=== PATIENT | female | born 1955 | race Caucasian/White ===

== ENCOUNTER 2023-01-14 14:46 | Observation (INO) | payer MEDICARE, OTHER, SELFPAY ==
--- NOTE | ~2023-01-14 | XR_ITS ---
EXAMINATION: XR CHEST CLINICAL INFORMATION: Chest pain COMPARISON: Chest 06/03/2018 TECHNIQUE: Frontal view of the chest was obtained. FINDINGS: No significant abnormality is noted involving the heart, lungs, mediastinum, bony thorax or soft tissues. XR/XR chest 1V IMPRESSION: Unremarkable chest examination.
--- NOTE | ~2023-01-14 | CT_ITS ---
EXAMINATION: CT angio head neck stroke, CT head for stroke CLINICAL INFORMATION: Slurred speech. COMPARISON: No relevant prior imaging. TECHNIQUE: Academic Support Director images were obtained. A CT angiogram of the head and neck was performed in the arterial phase after the intravenous administration of 70 mL Omnipaque 350. Pre and delayed postcontrast images of the head were also obtained. 3D images were processed on an independent workstation under concurrent supervision. Arterial stenoses are measured in accordance with NASCET criteria or similar method if applicable. This CT examination was performed using dose optimization techniques as appropriate, including one or more of the following: Automated exposure control, iterative reconstruction, and adjustment of technique factors (mA and/or kVp) according to patient size (this includes techniques or standardized protocols for targeted exams where dose is matched to indication/reason for exam). Fleischner Society criteria for the followup of incidental pulmonary nodules was implemented if appropriate. Total exam dose-length product 1469 mGy-cm FINDINGS: Head: There is no acute intracranial hemorrhage or abnormal extra-axial collection. Postcontrast images reveal no abnormal intracranial mass or enhancement. No intracranial mass effect or midline shift. Lateral and third ventricles are normal. No hydrocephalus. [place]-white matter differentiation is grossly preserved and there is no evidence of acute territorial infarct. The calvarium and skull base are intact. Mastoid air cells and middle ear cavities are well aerated. There is a retention cyst within the alveolar recess of the right maxillary sinus. Otherwise no active paranasal sinus disease. CT angiogram neck: The aortic arch apex is normal. Origins of the major aortic branches are widely patent. Common carotid arteries and carotid bifurcations are normal. No stenosis of the extracranial internal carotid arteries. The cervical vertebral arteries are widely patent. CT angiogram head: Intracranial internal carotid arteries are normal. The intradural vertebral artery segments and basilar artery are normal. Anterior, middle, and posterior cerebral artery complexes are normal. No intracranial large vessel occlusion. No identifiable aneurysm or high flow vascular lesion. Other: Soft tissues of the neck including the thyroid gland are normal. Lung apices are clear. No acute osseous finding. Specifically no worrisome lytic or blastic osseous lesion. CT/CT head for stroke IMPRESSION: Normal CT angiogram of the head and neck. No stenosis of the cervical carotid or vertebral arteries. No intracranial large vessel occlusion. Grossly no evidence of acute territorial infarct or hemorrhage. No abnormal intracranial mass or enhancement.
--- NOTE | ~2023-01-14 | MR_ITS ---
EXAMINATION: MR BRAIN WITHOUT CONTRAST CLINICAL INFORMATION: Slurred speech. COMPARISON: CTA head and neck from 01/14/2023. TECHNIQUE: MRI of the brain was obtained using routine sequences without contrast. FINDINGS: No focal restricted diffusion is demonstrated to suggest acute or subacute cerebral ischemia. No evidence of acute or chronic hemorrhagic products on heme-sensitive imaging. Scattered and partially confluent periventricular, deep white matter, and brainstem T2 FLAIR hyperintensities consistent with mild to moderate underlying microangiopathy. The ventricles are normal in morphology and size. No abnormal mass effect. No midline shift. Normal appearance of the pituitary gland. Normal positioning of the cerebellar tonsils. Normal arterial and venous vascular flow voids are present. Normal, homogeneous marrow signal. Mucus retention cyst within the right maxillary sinus. Mild mucosal thickening of the remaining paranasal sinuses. No signal abnormalities within the mastoids. MR/MR head/brain wo con IMPRESSION: 1. No acute intracranial abnormalities. 2. Mild to moderate underlying microangiopathy.
--- NOTE | ~2023-01-14 | CT_ITS ---
EXAMINATION: CT angio head neck stroke, CT head for stroke CLINICAL INFORMATION: Slurred speech. COMPARISON: No relevant prior imaging. TECHNIQUE: Frontload Driver images were obtained. A CT angiogram of the head and neck was performed in the arterial phase after the intravenous administration of 70 mL Omnipaque 350. Pre and delayed postcontrast images of the head were also obtained. 3D images were processed on an independent workstation under concurrent supervision. Arterial stenoses are measured in accordance with NASCET criteria or similar method if applicable. This CT examination was performed using dose optimization techniques as appropriate, including one or more of the following: Automated exposure control, iterative reconstruction, and adjustment of technique factors (mA and/or kVp) according to patient size (this includes techniques or standardized protocols for targeted exams where dose is matched to indication/reason for exam). Fleischner Society criteria for the followup of incidental pulmonary nodules was implemented if appropriate. Total exam dose-length product 1469 mGy-cm FINDINGS: Head: There is no acute intracranial hemorrhage or abnormal extra-axial collection. Postcontrast images reveal no abnormal intracranial mass or enhancement. No intracranial mass effect or midline shift. Lateral and third ventricles are normal. No hydrocephalus. [place]-white matter differentiation is grossly preserved and there is no evidence of acute territorial infarct. The calvarium and skull base are intact. Mastoid air cells and middle ear cavities are well aerated. There is a retention cyst within the alveolar recess of the right maxillary sinus. Otherwise no active paranasal sinus disease. CT angiogram neck: The aortic arch apex is normal. Origins of the major aortic branches are widely patent. Common carotid arteries and carotid bifurcations are normal. No stenosis of the extracranial internal carotid arteries. The cervical vertebral arteries are widely patent. CT angiogram head: Intracranial internal carotid arteries are normal. The intradural vertebral artery segments and basilar artery are normal. Anterior, middle, and posterior cerebral artery complexes are normal. No intracranial large vessel occlusion. No identifiable aneurysm or high flow vascular lesion. Other: Soft tissues of the neck including the thyroid gland are normal. Lung apices are clear. No acute osseous finding. Specifically no worrisome lytic or blastic osseous lesion. CT/CT angio head neck stroke IMPRESSION: Normal CT angiogram of the head and neck. No stenosis of the cervical carotid or vertebral arteries. No intracranial large vessel occlusion. Grossly no evidence of acute territorial infarct or hemorrhage. No abnormal intracranial mass or enhancement.
--- NOTE | 2023-01-14 14:51 | ECG_ITS ---
Test Reason : STROKE Blood Pressure : / mmHG Vent. Rate : 085 BPM Atrial Rate : 085 BPM P-R Int : 160 ms QRS Dur : 088 ms QT Int : 406 ms P-R-T Axes : 036 -43 046 degrees QTc Int : 483 ms Normal sinus rhythm Left axis deviation Abnormal ECG When compared with ECG of 03-JUN-2018 22:21, No significant change was found Referred By: Keith Pacheco Electronically Signed By:RAJAT SEBASTIAN
--- NOTE | 2023-01-14 14:53 | ED_ITS ---
HPI - Neuro Symptoms/Deficit General Chief Complaint: Stroke Stated Complaint: STROKE ALERT Time Seen by Provider: 01/14/23 14:51 Source: patient and EMS Mode of arrival: EMS History of Present Illness HPI Narrative: This is a 67 years old female presented to emergency department via ambulance complaining of slurred speech started about an hour ago. The patient has history of ocular migraine bowel when she gets the symptoms of the migraine she never had speech problems. Her symptoms are now improving Onset (ago): hour(s) (1) Location: speech History of same: No Severity: moderate Relieving factors: none Exacerbating factors: none Context: sudden onset On Anticoagulants: No Associated symptoms: denies other symptoms Related Data Allergies Allergy/AdvReac Type Severity Reaction Status Date / Time atenolol [ATENOLOL] AdvReac Unknown SHORTNESS Verified 01/14/23 15:02 OF BREATH hydrochlorothiazide AdvReac Unknown SUN Verified 01/14/23 15:02 [HYDROCHLOROTHIAZIDE] SENSITIVITY [facility] Past Medical History Attestation statement: The following information was validated with the patient. [facility] Narrative: Diabetes, ocular migraines Source: unable to obtain Medical History (Updated 01/14/23 @ 16:33 by Sofia Montanez NP) Diabetes mellitus type 2 in obese Hypertension Social History Social History Alcohol intake: current Alcohol intake frequency: holidays/special occasions only Smoked in Last 30 Days: No Use of substances other than those prescribed or required for medical reasons: No Advance Directives: No Advance Directives Information Provided: Yes Physical Exam 2 Vital Signs: Vital Signs: Last Vital Signs Temp 97.8 F 01/14/23 16:22 Pulse 82 01/14/23 16:22 Resp 15 01/14/23 16:22 BP 150/61 H 01/14/23 16:22 Pulse Ox 97 01/14/23 16:22 O2 Del Method Room Air 01/14/23 16:22 BMI result Body Mass Index 37.8 Const: General: cooperative Nutritional Appearance: average body habitus Orientation/consciousness: patient oriented x3 Limitations: no limitations HEENT: Head: Yes normal to inspection General nose exam: Normal external nose present Face and sinus: Yes normal facial exam Mouth: Normal oral and palatal mucosa present Throat: Yes posterior oropharynx normal Neck: Neck: Yes normal visual inspection Thyroid: Thyroid normal Resp: Effort & Inspection: normal respiratory effort Auscultation: clear to auscultation bilaterally Cardio: Jugular venous distension: no JVD Palpation: normal PMI Rate: r egular rate Rhythm: regular rhythm GI: Inspection: Yes normal to inspection Palpation (GI): Soft to palpation, not firm and nontender Percussion: Yes normal to percussion Auscultation: normal bowel sounds Skin: General skin exam: no rashes or lesions noted Lesions: no lesions Rashes: no rashes Neuro: General: patient oriented x3 Extrem: General: Yes normal to inspection Course Reevaluation(s) Reevaluation #1: spoke with Dr Uribe ct and cta negative Time: 16:06 Reevaluation #2: At this time the stroke scale is 0 no indication for tPA Time: 16:07 Medications Administered Discontinued Medications Generic Name Dose Route Start Last Admin Trade Name Freq PRN Reason Stop Dose Admin Aspirin 325 mg 01/14/23 15:59 01/14/23 16:10 Aspirin 325 Mg Tablet PO 01/14/23 16:00 325 mg ONCE ONE Administration Iohexol 100 ml 01/14/23 15:09 01/14/23 15:09 Iohexol 350 Mg/Ml 100 Ml Infus..Btl IV 01/14/23 15:10 70 ml ONCE ONE Administration Medical Decision Making Medical Decision Making [facility] [place] Narrative: Patient presented with slurred speech, we will get head CT and reassess, this point he is getting better I do not think she is candidate for tPA Differential Diagnosis Differential Diagnoses: The differential diagnosis associated with the presentation includes CVA/TIA Admission/Observation Consideration of admission/observation: Escalation of care including admission/observation considered Consult Healthcare Provider Management of the patient was discussed with: Youth Manager Dr Uribe Lab Data [facility] [place] Lab Attestation statement: I reviewed the patient's lab results. 01/14/23 16:05 01/14/23 16:05 Labs: Lab Results 01/14/23 01/14/23 Range/Units 14:57 16:05 WBC 7.3 (4.8-10.8) X10*3/uL RBC 5.14 (4.20-5.50) X10*6/uL Hgb 15.2 (12.0-16.0) g/dl Hct 45.2 (37.0-47.0) % MCV 87.9 (80.0-98.0) fL MCH 29.6 (27.0-33.0) pg MCHC 33.6 (31.0-35.0) g/dl RDW 12.4 (11.0-16.0) % Plt Count 230 (160-400) X10*3/uL MPV 10.4 (9.4-12.3) fL Immature Gran % (Auto) 0.4 (0.0-0.4) % Neut % (Auto) 64.2 (45-73) % Lymph % (Auto) 28.9 (20-40) % [place] % (Auto) 4.8 (2-11) % Eos % (Auto) 1.2 (0-4) % Baso % (Auto) 0.5 (0-2) % Lymph # (Auto) 2.1 (1.2-4.9) X10*3/uL [place] # (Auto) 0.4 (0.1-1.2) X10*3/uL Eos # (Auto) 0.1 (0.0-0.4) X10*3/uL Baso # (Auto) 0.0 (0.0-0.2) X10*3/uL Abs Immat Gran (auto) 0.03 (0.00-0.03) X10*3/uL Absolute Neuts (auto) 4.7 (2.0-8.3) x10*3/uL Absolute Nucleated RBC 0.000 (0.0-0.012) X10*3/uL Nucleated RBC % (auto) 0.0 (0.0-0.2) /100WBC Sodium 140 (135-145) mmol/L Potassium 3.5 (3.3-5.1) mmol/L Chloride 106 (96-108) mmol/L Carbon Dioxide 26 (22-29) mmol/L Anion Gap 12 (12-20) BUN 15 (9-16) mg/dL Creatinine 0.81 (0.5-1.4) mg/dL Estim Creat Clear Calc 75.7 Estimated GFR > 60 POC Glucose 167 H (60-115) mg/dL Random Glucose 153 H (60-115) mg/dL Calcium 10.3 H (8.4-10.2) mg/dL Total Bilirubin 0.5 (0.0-1.0) mg/dL AST 27 (5-31) U/L ALT 27 (0-31) U/L Alkaline Phosphatase 75 (39-117) U/L Troponin I High Sens < 2.7 (<3.5-17.0) ng/L Total Protein 7.3 (6.5-8.0) g/dL Albumin 4.3 (3.5-5.0) g/dL Urine Color Yellow Urine Appearance Clear Urine pH 7.0 (5.0-9.0) Ur Specific [place] 1.015 (1.005-1.025) Urine Protein Negative (Neg-Trace) mg/dL Urine Glucose (UA) Negative (Negative) mg/dL Urine Ketones Negative (Negative) mg/dL Urine Blood Negative (Negative) Urine Nitrite Negative (Negative) Ur Leukocyte Esterase Trace H (Negative) Urine RBC 0-2 (0-2) /HPF Urine WBC 0-5 (0-5) /HPF Ur Squamous Epith Cells 0-2 (0-2) /HPF Urine Bacteria None Seen (None Seen) Hyaline Casts 0-2 (0-2) /LPF Independent Interpretation I performed an independent interpretation of an: EKG Interpretation: sinus Radiology Impression Discussion of test interpretation with radiology: I have reviewed the radiologist's reading. Radiologist Impression: negative CT and CTA Discharge Plan Discharge Clinical Impression: Transient cerebral ischemia Patient Disposition: Admitted As Inpatient
[2023-01-14 15:02] VITALS: BP 165/90; PULSE 90; O2SAT 100; BMI 37.8
[2023-01-14 15:06] LABS: Glucose, Whole Blood 167 mg/dL (60-115)
[2023-01-14] MEDS: iohexoL 350 MG/ML 100 ML INFUS..BTL IV (15:09)
[2023-01-14 15:20] VITALS: PULSE 87; RESP 16; TEMP 36.7; O2SAT 98
--- NOTE | 2023-01-14 15:27 | PC.NURSE ---
pt returned from CT. a&ox3, vss, nsr on the bacteriology research assistant. tech currently performing ekg. pt biba d/t stroke alert. LKW 1400 on 01/14/23. pt states that she was on the phone with the pharmacy and felt tingling/numbness sensation in the right eye where she then started to have a delay in speech where she was not able to speak w/o difficulty. pt has hx of ocular migraines and states that this feels different compared to how it usually does. pt able to speak in full clear sentences w/o difficulty. no delay in speech noted at this time. neuros currently intact - bilateral equal strength in all extremities. pt currently resting in no apparent distress. respirations even and unlabored. call anders placed within reach.
[2023-01-14 16:09] LABS: MANUAL DIFF FLAG NO
[2023-01-14] MEDS: Aspirin 325 MG TABLET PO (16:10)
[2023-01-14 16:11] LABS: Basophils Percent Auto 0.5 % (0-2); Eosinophils Absolute Auto 0.1 X10*3/uL (0.0-0.4); Eosinophils Percent Auto 1.2 % (0-4); Hematocrit 45.2 % (37.0-47.0); Hemoglobin 15.2 g/dl (12.0-16.0); Imm Gran Abs Auto 0.03 X10*3/uL (0.00-0.03); Imm Gran Pct Auto 0.4 % (0.0-0.4); Lymphocytes Absolute Auto 2.1 X10*3/uL (1.2-4.9); Lymphocytes Percent Auto 28.9 % (20-40); Mean Corpuscular HGB Conc 33.6 g/dl (31.0-35.0); Mean Corpuscular Hemoglobin 29.6 pg (27.0-33.0); Mean Corpuscular Volume 87.9 fL (80.0-98.0); Mean Platelet Volume 10.4 fL (9.4-12.3); Monocytes Absolute Auto 0.4 X10*3/uL (0.1-1.2); Monocytes Percent Auto 4.8 % (2-11); Neutrophils Absolute Auto 4.7 x10*3/uL (2.0-8.3); Neutrophils Percent Auto 64.2 % (45-73); Platelet Count 230 X10*3/uL (160-400); Red Blood Count 5.14 X10*6/uL (4.20-5.50); Red Cell Distribution Width 12.4 % (11.0-16.0); White Blood Count 7.3 X10*3/uL (4.8-10.8)
--- NOTE | 2023-01-14 16:15 | PC.NURSE ---
tech bedside drawing labs. medication administered per provider order. pt resting comfortably in no apparent distress. call anders placed within reach.
[2023-01-14 16:20] LABS: Appearance Urine Clear; Color Urine Yellow; Glucose Urine UA Negative (Negative); Leukocyte Esterase Urine Trace (Negative); Nitrite Urine Negative (Negative); Specific Gravity - Urine 1.015 (1.005-1.025); UMIC TRIGGER UACC YES; Urine Blood Negative (Negative); Urine Ketones Negative (Negative); Urine Protein Negative (Neg-Trace)
--- NOTE | 2023-01-14 16:20 | PM.IMHP ---
History of Present Illness Date of Service: 01/14/23 Chief Complaint: headache 67 year old women presenting with slurred speech that started one hour prior to presentation. Patient reported that she has a history of ocular migraines and developed one . She reported that she does not get headache with but this time she did. She received a message from her pharmacy and she had questions and decided to call. She reported when she called she was on able to say which she wanted to say and felt like her speech was garbled she stated that she hung up and waited a few minutes and try to call back the same thing happened she reported that she knew what she wanted to say but it was not coming out properly. She denied any chest pain, shortness breath, nausea, vomiting, diarrhea, visual changes she did report some lightheadedness and weakness in her legs. She reports usually good blood pressure control when she checked her blood pressure was 217/102. EMS was called. She reported her symptoms in total lasted approximately 1 hour and resolved. In the ED, Head CTA with no stenosis or large vessel occlusion. No intracranial hemorrhage noted. labs all within acceptable limits, vital signs stable. Chest x-ray without consolidation or effusion. Patient given a dose of aspirin in the ER. She will be placed on observation for possible TIA. Review of Systems Review of Systems: Denies any recent fever chills or decrease in appetite respiratory denies any shortness of breath coverage production cardiovascular denies chest pain gastrointestinal denies any dysphagia abdominal pain nausea vomiting or diarrhea genitourinary denies any dysuria frequency or hematuria musculoskeletal denies any joint pain or swelling neuropsych denies any weakness or seizures all other systems reviewed are negative [facility] Medical History (Updated 01/14/23 @ 16:33 by Sofia Montanez NP) Diabetes mellitus type 2 in obese Hypertension Family History (Updated 01/14/23 @ 18:05 by Sofia Montanez NP) Mother Stroke Social History Alcohol intake: current Alcohol intake frequency: holidays/special occasions only Patient Tobacco Use Status: Never used Tobacco Smoked in Last 30 Days: No Use of substances other than those prescribed or required for medical reasons: No Advance Directives: No Advance Directives Information Provided: Yes Nutrition Risks: No Nutritional Risk service: No Meds Allergies Allergy/AdvReac Type Severity Reaction Status Date / Time atenolol [ATENOLOL] AdvReac Unknown SHORTNESS Verified 01/14/23 15:02 OF BREATH hydrochlorothiazide AdvReac Unknown SUN Verified 01/14/23 15:02 [HYDROCHLOROTHIAZIDE] SENSITIVITY Active Medications: Current Medications Acetaminophen (Acetaminophen 325 Mg Tablet) 650 mg PO Q6H PRN PRN Reason: Pain, Mild (Pain Scale 1-3) Heparin Sodium (Porcine) (Heparin Sodium,Porcine 5,000 Unit/Ml Vial) 5,000 unit SUBCUT Q12H CAITLIN Ondansetron HCl (Ondansetron Hcl 4 Mg/2 Ml Vial) 4 mg IVPUSH Q8H PRN PRN Reason: Nausea and Vomiting Sodium Chloride (0.9 % Sodium Chloride Flush 3 Ml Syringe) 3 ml IVFLUSH QSHIFT [facility] Home Medications Medication Instructions Recorded Confirmed Last Taken Type cholecalciferol (vitamin D3) 1,250 1,250 mcg PO Q2W 01/14/23 01/14/23 01/09/23 History mcg (50,000 unit) capsule coenzyme Q10 100 mg capsule 100 mg PO BEDTIME 01/14/23 01/14/23 01/14/23 History (CoQ-10) diltiazem HCl 60 mg 60 mg PO BID 01/14/23 01/14/23 01/14/23 History capsule,extended release 12 hr famotidine 40 mg tablet 40 mg PO BEDTIME 01/14/23 01/14/23 01/14/23 History loperamide 2 mg capsule 2 mg PO Q6H PRN Diarrhea 01/14/23 01/14/23 Unknown History loratadine 10 mg tablet (Claritin) 10 mg PO DAILY 01/14/23 01/14/23 01/14/23 History lorazepam 0.5 mg tablet 0.25 mg PO DAILY PRN Anxiety 01/14/23 01/14/23 Unknown History magnesium glycinate 100 mg tablet 200 mg PO BEDTIME 01/14/23 01/14/23 01/14/23 History omeprazole 20 mg capsule,delayed 20 mg PO DAILY@0630 01/14/23 01/14/23 01/14/23 History release semaglutide 0.25 mg or 0.5 mg (2 0.5 mg subcut FR@0900 01/14/23 01/14/23 01/11/23 History mg/3 mL) subcutaneous pen injector (OzempJustShareIt) vitamin B complex 1 cap PO DAILY 01/14/23 01/14/23 01/14/23 History zinc 50 mg capsule 50 mg PO DAILY 01/14/23 01/14/23 01/14/23 History Physical Exam Vital Signs and Narrative: Vital Signs: Last Vital Signs Temp 98.0 F 01/14/23 15:20 Pulse 87 01/14/23 15:20 Resp 16 01/14/23 15:20 Pulse Ox 98 01/14/23 15:20 O2 Del Method Room Air 01/14/23 15:20 BMI result Body Mass Index 37.8 Appearing in no acute distress head is normocephalic atraumatic eyes pupils are PERRLA sclera is anicteric mouth throat mucous membranes are intact and moist neck is supple no lymphadenopathy, no JVD noted lung sounds are clear to auscultation heart regular rate rhythm, clear S1, S2 positive bowel sounds, abdomen is soft, nontender neuro patient is alert x3, no focal deficits 5/5 upper and lower extremity strength Results Labs 01/15/23 07:03 01/15/23 07:03 Labs: Laboratory Results - last 24 hr 01/14/23 01/14/23 14:57 16:05 MCV 87.9 MCH 29.6 MCHC 33.6 RDW 12.4 Plt Count 230 MPV 10.4 Immature Gran % (Auto) 0.4 Neut % (Auto) 64.2 Lymph % (Auto) 28.9 [place] % (Auto) 4.8 Eos % (Auto) 1.2 Baso % (Auto) 0.5 Lymph # (Auto) 2.1 [place] # (Auto) 0.4 Eos # (Auto) 0.1 Baso # (Auto) 0.0 Abs Immat Gran (auto) 0.03 Absolute Neuts (auto) 4.7 Absolute Nucleated RBC 0.000 Nucleated RBC % (auto) 0.0 POC Glucose 167 H Imaging Radiologist's Impressions: Impressions Head CT 01/14/23 14:56 IMPRESSION: Normal CT angiogram of the head and neck. No stenosis of the cervical carotid or vertebral arteries. No intracranial large vessel occlusion. Grossly no evidence of acute territorial infarct or hemorrhage. No abnormal intracranial mass or enhancement. Head/Neck CTA 01/14/23 15:08 IMPRESSION: Normal CT angiogram of the head and neck. No stenosis of the cervical carotid or vertebral arteries. No intracranial large vessel occlusion. Grossly no evidence of acute territorial infarct or hemorrhage. No abnormal intracranial mass or enhancement. Assessment and Plan (1) Transient cerebral ischemia: Status: Acute Plan 67-year-old woman admitted with possible TIA. Reported garbled/incoherent speech at home for approximately 1 hour. Possible TIA Reported garbled/incoherent speech No symptoms at this time Brain CT negative for any acute abnormality Will obtain MRI Monitor on telemetry Neurology consultation Received full-dose aspirin in the ED Patient declining statin Hypertension. Stable blood pressure Continue home medications Diabetes mellitus Sliding scale, ADA diet Obesity. BMI 37.8 Discussed importance of weight management as this may be contributing to worsening of other comorbidities DVT prophylaxis with heparin Full code Observation Time Spent With Patient Time: Total time managing care of this patient today ____ minutes. Quality Stroke Does the patient have a stroke diagnosis?: No VTE Prior VTE?: No VTE Risk Level:: Medical - moderate - high VTE Device Contraindication: Treatment Not Indicated VTE Drug Contraindication: N/A - Med Ordered
[2023-01-14 16:22] VITALS: BP 150/61; PULSE 82; RESP 15; TEMP 36.6; O2SAT 97
[2023-01-14 16:25] LABS: Alanine Aminotransferase 27 U/L (0-31); Albumin Level 4.3 g/dL (3.5-5.0); Alkaline Phosphatase 75 U/L (39-117); Anion Gap 12 (12-20); Aspartate Amino Transferase 27 U/L (5-31); Bacteria Urine None Seen (None Seen); Bilirubin Total 0.5 mg/dL (0.0-1.0); Blood Urea Nitrogen 15 mg/dL (9-16); Calcium 10.3 mg/dL (8.4-10.2); Carbon Dioxide 26 mmol/L (22-29); Chloride 106 mmol/L (96-108); Creatinine Clr Calc Pharmacy 75.7; Estimated Glomerular Filt Rate > 60; Glucose Random 153 mg/dL (60-115); Hyaline Casts Urine 0-2 /LPF (0-2); Potassium 3.5 mmol/L (3.3-5.1); RBC Urine 0-2 /HPF (0-2); Sodium 140 mmol/L (135-145); Squamous Epithelial Cell Urine 0-2 /HPF (0-2); Total Protein 7.3 g/dL (6.5-8.0); WBC Urine 0-5 /HPF (0-5)
[2023-01-14 16:33] LABS: Troponin-I High Sensitivity < 2.7 ng/L (<3.5-17.0)
[2023-01-14 16:47] LABS: Partial Thromboplastin Time 32.9 SEC (26.0-36.4)
--- NOTE | 2023-01-14 17:14 | PC.NURSE ---
attempted to give report to RN on [facility] - RN unavailable at this time. states that they will call back shortly.
--- NOTE | 2023-01-14 18:27 | PHA.MEDREC ---
Pharmacy Consult ? Medication Reconciliation Pharmacy has completed the medication reconciliation. Patient able to name all medications
--- NOTE | 2023-01-14 18:32 | PC.NURSE ---
report given to floor, MRI screening for performed and faxed to MRI- per MRI they will take the patient around 8pm- floor is aware of this as is the patient. transport has been notified to bring patient to the floor.
[2023-01-14 19:40] VITALS: BP 170/81; PULSE 86; RESP 20; TEMP 36.3; O2SAT 98
[2023-01-14 20:25] LABS: Glucose, Whole Blood 118 mg/dL (60-115)
[2023-01-14] MEDS: Heparin Sodium,Porcine 5,000 UNIT/ML VIAL 5000 UNIT SUBCUT (22:44)
[2023-01-14] MEDS: 0.9 % Sodium Chloride Flush 3 ML SYRINGE IVFLUSH (22:48)
[2023-01-14 23:35] VITALS: BP 177/79; PULSE 82; RESP 18; TEMP 36.5; O2SAT 97
[2023-01-14] MEDS: Acetaminophen 325 MG TABLET 650 MG PO (23:59)
[2023-01-15] MEDS: Famotidine 20 MG TABLET 40 MG PO (00:18)
[2023-01-15] MEDS: LORazepam 0.5 MG TABLET 0.25 MG PO (00:19)
[2023-01-15 03:28] VITALS: BP 159/69; PULSE 69; RESP 18; TEMP 36.3; O2SAT 97
[2023-01-15 07:14] LABS: Hematocrit 42.5 % (37.0-47.0); Hemoglobin 14.3 g/dl (12.0-16.0); Mean Corpuscular HGB Conc 33.6 g/dl (31.0-35.0); Mean Corpuscular Hemoglobin 29.7 pg (27.0-33.0); Mean Corpuscular Volume 88.4 fL (80.0-98.0); Mean Platelet Volume 10.4 fL (9.4-12.3); Platelet Count 228 X10*3/uL (160-400); Red Blood Count 4.81 X10*6/uL (4.20-5.50); Red Cell Distribution Width 12.6 % (11.0-16.0); White Blood Count 7.2 X10*3/uL (4.8-10.8)
[2023-01-15 07:26] LABS: Prothrombin Time Whole Bld POC 12.3 sec (11.1-13.5)
[2023-01-15 07:50] LABS: Anion Gap 13 (12-20); Blood Urea Nitrogen 14 mg/dL (9-16); Calcium 9.1 mg/dL (8.4-10.2); Carbon Dioxide 26 mmol/L (22-29); Chloride 106 mmol/L (96-108); Creatinine Clr Calc Pharmacy 83.9; Estimated Glomerular Filt Rate > 60; Glucose Random 150 mg/dL (60-115); Potassium 3.5 mmol/L (3.3-5.1); Sodium 141 mmol/L (135-145)
[2023-01-15 07:56] VITALS: BP 161/74; PULSE 84; RESP 20; TEMP 36.8; O2SAT 97
[2023-01-15 08:09] LABS: Glucose, Whole Blood 142 mg/dL (60-115)
[2023-01-15] MEDS: 0.9 % Sodium Chloride Flush 3 ML SYRINGE IVFLUSH (09:33)
[2023-01-15] MEDS: Aspirin 81 MG TAB.CHEW PO (09:33)
[2023-01-15 10:46] VITALS: BP 162/78; PULSE 78; RESP 20; TEMP 36.2; O2SAT 97
--- NOTE | 2023-01-15 11:01 | MHC.CM.PN ---
CM met with pt at bedside, and addressed De Anda with her, providing her with the original and placing a copy on the chart. Pt lives with her / HCP, and required no services nor DME prior to admission. Home self care is the plan and CM has initiated and will follow for dc planning. PCP: Ayanna Holley
[2023-01-15 11:20] LABS: Glucose, Whole Blood 208 mg/dL (60-115)
--- NOTE | 2023-01-15 11:53 | P.DS_ITS ---
DS: Providers Provider Date of Service: 01/15/23 Date of admission: 01/14/23 16:18 Primary care physician: Ayanna Holley NP DS: Diagnosis Discharge Diagnosis (1) Transient cerebral ischemia: Status: Acute DS: Summary Hospital Course Hospital Course: History and physical as per admitting provider. 67 year old women presenting with slurred speech that started one hour prior to presentation. Patient reported that she has a history of ocular migraines and developed one . She reported that she does not get headache with but this time she did. She received a message from her pharmacy and she had questions and decided to call. She reported when she called she was on able to say which she wanted to say and felt like her speech was garbled she stated that she hung up and waited a few minutes and try to call back the same thing happened she reported that she knew what she wanted to say but it was not coming out properly. She denied any chest pain, shortness breath, nausea, vomiting, diarrhea, visual changes she did report some lightheadedness and weakness in her legs. She reports usually good blood pressure control when she checked her blood pressure was 217/102. EMS was called. She reported her symptoms in total lasted approximately 1 hour and res olved. In the ED, Head CTA with no stenosis or large vessel occlusion. No intracranial hemorrhage noted. labs all within acceptable limits, vital signs stable. Chest x-ray without consolidation or effusion. Patient given a dose of aspirin in the ER. She will be placed on observation for possible TIA. 67-year-old woman presenting with ocular migraine and reported slurred speech. All symptoms resolved within 1 hour. Received full-dose aspirin in the ER. Patient has had no further episodes. MRI was negative for any acute infarction. Labs within acceptable limits. Vital signs stable. Patient can follow up with neurology as an outpatient. Diabetes mellitus type 2. Continue medication Obesity. BMI 37.8. Discussed importance of weight management as this may be contributing to worsening of other comorbidities Hypertension. Continue medications Time Spent with Patient Time attestation: Total time managing care of this patient today ____ minutes. Discharge coordination time: Greater than 30 minutes Quality: Safe Use of Opioids Does Pt have an Active Cancer Diagnosis on the Problem List?: No Quality: Stroke Does the patient have a stroke diagnosis?: No Physical Exam Vital Signs: Vital Signs: Last Vital Signs Temp 97.2 F 01/15/23 10:46 Pulse 78 01/15/23 10:46 Resp 20 01/15/23 10:46 BP 162/78 H 01/15/23 10:46 Pulse Ox 97 01/15/23 10:46 O2 Del Method Room Air 01/15/23 10:46 BMI result Body Mass Index 37.8 Appearing in no acute distress head is normocephalic atraumatic eyes pupils are PERRLA sclera is anicteric mouth throat mucous membranes are intact and moist neck is supple no lymphadenopathy, no JVD noted lung sounds are clear to auscultation heart regular rate rhythm, clear S1, S2 positive bowel sounds, abdomen is soft, nontender neuro patient is alert x3, no focal deficits DS: Data Data Completed and Pending Labs on day of discharge: Laboratory Results - last 24 hr 01/14/23 01/14/23 01/14/23 14:57 14:58 16:05 WBC 7.3 RBC 5.14 Hgb 15.2 Hct 45.2 MCV 87.9 MCH 29.6 MCHC 33.6 RDW 12.4 Plt Count 230 MPV 10.4 Immature Gran % (Auto) 0.4 Neut % (Auto) 64.2 Lymph % (Auto) 28.9 [place] % (Auto) 4.8 Eos % (Auto) 1.2 Baso % (Auto) 0.5 Lymph # (Auto) 2.1 [place] # (Auto) 0.4 Eos # (Auto) 0.1 Baso # (Auto) 0.0 Abs Immat Gran (auto) 0.03 Absolute Neuts (auto) 4.7 Absolute Nucleated RBC 0.000 Nucleated RBC % (auto) 0.0 Whole Blood PT 12.3 Whole Blood INR 1.0 APTT Sodium 140 Potassium 3.5 Chloride 106 Carbon Dioxide 26 Anion Gap 12 BUN 15 Creatinine 0.81 Estim Creat Clear Calc 75.7 Estimated GFR > 60 POC Glucose 167 H Random Glucose 153 H Calcium 10.3 H Total Bilirubin 0.5 AST 27 ALT 27 Alkaline Phosphatase 75 Troponin I High Sens < 2.7 Total Protein 7.3 Albumin 4.3 Urine Color Yellow Urine Appearance Clear Urine pH 7.0 Ur Specific [place] 1.015 Urine Protein Negative Urine Glucose (UA) Negative Urine Ketones Negative Urine Blood Negative Urine Nitrite Negative Ur Leukocyte Esterase Trace H Urine RBC 0-2 Urine WBC 0-5 Ur Squamous Epith Cells 0-2 Urine Bacteria None Seen Hyaline Casts 0-2 01/14/23 01/14/23 01/15/23 16:21 19:59 07:03 WBC 7.2 RBC 4.81 Hgb 14.3 Hct 42.5 MCV 88.4 MCH 29.7 MCHC 33.6 RDW 12.6 Plt Count 228 MPV 10.4 Immature Gran % (Auto) Neut % (Auto) Lymph % (Auto) [place] % (Auto) Eos % (Auto) Baso % (Auto) Lymph # (Auto) [place] # (Auto) Eos # (Auto) Baso # (Auto) Abs Immat Gran (auto) Absolute Neuts (auto) Absolute Nucleated RBC 0.000 Nucleated RBC % (auto) 0.0 Whole Blood PT Whole Blood INR APTT 32.9 Sodium 141 Potassium 3.5 Chloride 106 Carbon Dioxide 26 Anion Gap 13 BUN 14 Creatinine 0.73 Estim Creat Clear Calc 83.9 Estimated GFR > 60 POC Glucose 118 H Random Glucose 150 H Calcium 9.1 D Total Bilirubin AST ALT Alkaline Phosphatase Troponin I High Sens Total Protein Albumin Urine Color Urine Appearance Urine pH Ur Specific [place] Urine Protein Urine Glucose (UA) Urine Ketones Urine Blood Urine Nitrite Ur Leukocyte Esterase Urine RBC Urine WBC Ur Squamous Epith Cells Urine Bacteria Hyaline Casts 01/15/23 01/15/23 07:57 10:47 WBC RBC Hgb Hct MCV MCH MCHC RDW Plt Count MPV Immature Gran % (Auto) Neut % (Auto) Lymph % (Auto) [place] % (Auto) Eos % (Auto) Baso % (Auto) Lymph # (Auto) [place] # (Auto) Eos # (Auto) Baso # (Auto) Abs Immat Gran (auto) Absolute Neuts (auto) Absolute Nucleated RBC Nucleated RBC % (auto) Whole Blood PT Whole Blood INR APTT Sodium Potassium Chloride Carbon Dioxide Anion Gap BUN Creatinine Estim Creat Clear Calc Estimated GFR POC Glucose 142 H 208 H Random Glucose Calcium Total Bilirubin AST ALT Alkaline Phosphatase Troponin I High Sens Total Protein Albumin Urine Color Urine Appearance Urine pH Ur Specific [place] Urine Protein Urine Glucose (UA) Urine Ketones Urine Blood Urine Nitrite Ur Leukocyte Esterase Urine RBC Urine WBC Ur Squamous Epith Cells Urine Bacteria Hyaline Casts Discharge Plan Discharge Anticipated Discharge Date/Time: 01/15/23 11:52 Patient Disposition: Home, Self-Care Discharge Diagnosis: Ocular headache/migraine Referrals: Ayanna Holley NP [Primary Care Provider] - 1 Week Discharge Medications: Continued loperamide 2 mg Capsule 2 mg PO Q6H PRN (Reason: Diarrhea) famotidine 40 mg Tablet 40 mg PO BEDTIME lorazepam 0.5 mg Tablet 0.25 mg PO DAILY PRN (Reason: Anxiety) omeprazole 20 mg Capsule,Delayed Release(Dr/Ec) 20 mg PO DAILY@0630 diltiazem HCl 60 mg capsule,extended release 12 hr 60 mg PO BID loratadine [Claritin] 10 mg Tablet 10 mg PO DAILY vitamin B complex Capsule 1 cap PO DAILY coenzyme Q10 [CoQ-10] 100 mg Capsule 100 mg PO BEDTIME zinc 50 mg Capsule 50 mg PO DAILY cholecalciferol (vitamin D3) 1,250 mcg (50,000 unit) capsule 1,250 mcg PO Q2W Rx Instructions: n wednesdays magnesium glycinate 100 mg Tablet 200 mg PO BEDTIME Ozempic 0.25 mg or 0.5 mg (2 mg/3 mL) pen injector 0.5 mg subcut FR@0900 Discharge Orders: Discharge Order (Routine); Ordered 01/15/23 Ordered By: Bebe Rao Diet: Advance to usual diet Activity on Discharge: As tolerated Stand Alone Forms: Patient Portal Discharge page Care Plan Goals: No further episodes of speech impairment Health Concerns: Ocular headache/migraine Plan of Treatment: Follow-up with primary care provider as needed Take all medications as prescribed Your primary care provider must place referral to neurology for further management of ocular migraines Assessment: See discharge summary Discharge Date/Time: 01/15/23 18:25
[2023-01-15] MEDS: Omeprazole 20 MG CAPSULE.DR PO (13:18)
[2023-01-15] MEDS: Loperamide HCl 2 MG CAPSULE PO (13:19)
[2023-01-15 14:25] VITALS: BP 148/78; PULSE 72
[2023-01-15] MEDS: dilTIAZem HCL SR 60 MG CAP.ER.12H PO (14:33)
--- NOTE | 2023-01-15 15:15 | HO.PM.IMPN ---
Subjective Subjective Date of Service: 01/15/23 Review of Systems Follow up slurred speech Self-limited episode Denies nausea, vomiting, diarrhea Physical Exam Vital Signs: Vital Signs: Last Vital Signs Temp 97.2 F 01/15/23 10:46 Pulse 72 01/15/23 14:25 Resp 20 01/15/23 10:46 BP 148/78 H 01/15/23 14:25 Pulse Ox 97 01/15/23 10:46 O2 Del Method Room Air 01/15/23 10:46 BMI result Body Mass Index 37.8 Appearing in no acute distress lung sounds are clear to auscultation heart regular rate rhythm, clear S1, S2 positive bowel sounds, abdomen is soft, nontender neuro patient is alert x3, no focal deficits Objective Data Active Medications Acetaminophen (Acetaminophen 325 Mg Tablet) 650 mg PO Q6H PRN PRN Reason: Pain, Mild (Pain Scale 1-3) Last Admin: 01/14/23 23:59 Dose: 650 mg Documented By: SAAD Aspirin (Aspirin 81 Mg Tab.Chew) 81 mg PO DAILY [facility] Last Admin: 01/15/23 09:33 Dose: 81 mg Documented By: MIGUEL A Dextrose (Dextrose 50 % 25 Gm/50 Ml Syringe) 25 gm IVPUSH Q15M PRN; Protocol PRN Reason: per Hypoglycemia Standing Ord. Diltiazem HCl (Diltiazem Hcl Sr 60 Mg Cap.Er.12h) 60 mg PO BID [facility]; Protocol Last Admin: 01/15/23 14:33 Dose: 60 mg Documented By: ANT Comments: vp [employer] media and crm late d/t not stocked. Famotidine (Famotidine 20 Mg Tablet) 40 mg PO BEDTIME [facility] Glucose (Glucose Gel 15 Gm Gel..Gram.) 15 gm PO Q15M PRN; Protocol PRN Reason: per Hypoglycemia Standing Ord. Heparin Sodium (Porcine) (Heparin Sodium,Porcine 5,000 Unit/Ml Vial) 5,000 unit SUBCUT Q12H [facility] Last Admin: 01/15/23 09:31 Dose: Not Given Documented By: MIGUEL A Non-Admin Reason: Patient Refused Insulin Human Lispro (Insulin Lispro 100 Unit/Ml 3 Ml Vial) 0 unit SUBCUT QIDACHS [facility]; Protocol Last Admin: 01/15/23 11:57 Dose: Not Given Documented By: ANT Non-Admin Reason: Patient Refused Loperamide HCl (Loperamide Hcl 2 Mg Capsule) 2 mg PO Q6H PRN PRN Reason: Diarrhea Last Admin: 01/15/23 13:19 Dose: 2 mg Documented By: ANT Loratadine (Loratadine 10 Mg Tablet) 10 mg PO DAILY [facility] Lorazepam (Lorazepam 0.5 Mg Tablet) 0.25 mg PO DAILY PRN PRN Reason: Anxiety Multivitamins/Vitamin C (Multivitamin Tablet) 1 tab PO DAILY [facility] Omeprazole (Omeprazole 20 Mg Capsule.) 20 mg PO DAILY@0630 [facility] Last Admin: 01/15/23 13:18 Dose: 20 mg Documented By: ANT Ondansetron HCl (Ondansetron Hcl 4 Mg/2 Ml Vial) 4 mg IVPUSH Q8H PRN PRN Reason: Nausea and Vomiting Sodium Chloride (0.9 % Sodium Chloride Flush 3 Ml Syringe) 3 ml IVFLUSH QSHIFT [facility] Last Admin: 01/15/23 09:33 Dose: 3 ml Documented By: MIGUEL A Zinc Sulfate (Zinc Sulfate 220 Mg Capsule) 220 mg PO DAILY [facility] Labs 01/15/23 07:03 01/15/23 07:03 Labs: Laboratory Results - last 24 hr 01/14/23 01/14/23 01/14/23 14:58 16:05 16:21 MCV 87.9 MCH 29.6 MCHC 33.6 RDW 12.4 Plt Count 230 MPV 10.4 Immature Gran % (Auto) 0.4 Neut % (Auto) 64.2 Lymph % (Auto) 28.9 [place] % (Auto) 4.8 Eos % (Auto) 1.2 Baso % (Auto) 0.5 Lymph # (Auto) 2.1 [place] # (Auto) 0.4 Eos # (Auto) 0.1 Baso # (Auto) 0.0 Abs Immat Gran (auto) 0.03 Absolute Neuts (auto) 4.7 Absolute Nucleated RBC 0.000 Nucleated RBC % (auto) 0.0 Whole Blood PT 12.3 Whole Blood INR 1.0 APTT 32.9 Anion Gap 12 Estim Creat Clear Calc 75.7 Estimated GFR > 60 POC Glucose Random Glucose 153 H Calcium 10.3 H Total Bilirubin 0.5 AST 27 ALT 27 Alkaline Phosphatase 75 Total Protein 7.3 Albumin 4.3 Urine Color Yellow Urine Appearance Clear Urine pH 7.0 Ur Specific [place] 1.015 Urine Protein Negative Urine Glucose (UA) Negative Urine Ketones Negative Urine Blood Negative Urine Nitrite Negative Ur Leukocyte Esterase Trace H Urine RBC 0-2 Urine WBC 0-5 Ur Squamous Epith Cells 0-2 Urine Bacteria None Seen Hyaline Casts 0-2 01/14/23 01/15/23 01/15/23 19:59 07:03 07:57 MCV 88.4 MCH 29.7 MCHC 33.6 RDW 12.6 Plt Count 228 MPV 10.4 Immature Gran % (Auto) Neut % (Auto) Lymph % (Auto) [place] % (Auto) Eos % (Auto) Baso % (Auto) Lymph # (Auto) [place] # (Auto) Eos # (Auto) Baso # (Auto) Abs Immat Gran (auto) Absolute Neuts (auto) Absolute Nucleated RBC 0.000 Nucleated RBC % (auto) 0.0 Whole Blood PT Whole Blood INR APTT Anion Gap 13 Estim Creat Clear Calc 83.9 Estimated GFR > 60 POC Glucose 118 H 142 H Random Glucose 150 H Calcium 9.1 D Total Bilirubin AST ALT Alkaline Phosphatase Total Protein Albumin Urine Color Urine Appearance Urine pH Ur Specific [place] Urine Protein Urine Glucose (UA) Urine Ketones Urine Blood Urine Nitrite Ur Leukocyte Esterase Urine RBC Urine WBC Ur Squamous Epith Cells Urine Bacteria Hyaline Casts 01/15/23 10:47 MCV MCH MCHC RDW Plt Count MPV Immature Gran % (Auto) Neut % (Auto) Lymph % (Auto) [place] % (Auto) Eos % (Auto) Baso % (Auto) Lymph # (Auto) [place] # (Auto) Eos # (Auto) Baso # (Auto) Abs Immat Gran (auto) Absolute Neuts (auto) Absolute Nucleated RBC Nucleated RBC % (auto) Whole Blood PT Whole Blood INR APTT Anion Gap Estim Creat Clear Calc Estimated GFR POC Glucose 208 H Random Glucose Calcium Total Bilirubin AST ALT Alkaline Phosphatase Total Protein Albumin Urine Color Urine Appearance Urine pH Ur Specific [place] Urine Protein Urine Glucose (UA) Urine Ketones Urine Blood Urine Nitrite Ur Leukocyte Esterase Urine RBC Urine WBC Ur Squamous Epith Cells Urine Bacteria Hyaline Casts Assessment and Plan (1) Transient cerebral ischemia: Status: Acute Plan 67-year-old woman admitted with possible TIA. Reported garbled/incoherent speech at home for approximately 1 hour. Possible TIA Reported garbled/incoherent speech. resolved No further symptoms at this time Brain CT negative for any acute abnormality MRI neg for infarction on telemetry Neurology consultation pending Received full-dose aspirin in the ED Patient declining statin Hypertension. Stable blood pressure Continue home medications Diabetes mellitus Sliding scale, ADA diet Obesity. BMI 37.8 Discussed importance of weight management as this may be contributing to worsening of other comorbidities DVT prophylaxis with heparin Attending Dr. Daugherty Full code Time Spent With Patient Time: Total time managing care of this patient today ____ minutes. Quality Stroke Does the patient have a stroke diagnosis?: No VTE Prior VTE?: No VTE Risk Level:: Medical - moderate - high VTE Device Contraindication: Treatment Not Indicated VTE Drug Contraindication: N/A - Med Ordered
[2023-01-15 15:45] VITALS: BP 155/79; PULSE 76; RESP 16; TEMP 35.9; O2SAT 97
[2023-01-15 16:52] LABS: Glucose, Whole Blood 113 mg/dL (60-115)
--- NOTE | 2023-01-15 17:30 | MHC.STROKE ---
I MET WITH THE PATIENT DISCUSSED HER SCANS AND THE RESULTS. SHE WILL FOLLOW UP WITH dR. MURILLO IN HIS OFFICE. I DID GIVE HER HIS PHONE NUMBER TO CALL FOR AN APPOINTMENT. SHE HAS A FAMILY HISTORY OF STROKES AND MIGRAINES ON HER MOTHERS DSIDE. I ANSWERED ALL HER QUESTIONS.
== END 2023-01-15 18:25 | disposition home or self-care (01) ==
LOC: HO.ED 16:07 → HO.EDOVER 16:20 → HO.IMC 17:09
PROVIDERS: Admitting Provider Nurse Practitioner Acute Care; Emergency Provider Emergency Medicine; PCP Nurse Practitioner Adult Health; Visit Provider Nurse Practitioner Acute Care
DX: G43.B0 Ophthalmoplegic migraine, not intractable (principal); R47.81 Slurred speech; R07.9 Chest pain, unspecified; E11.9 Type 2 diabetes mellitus without complications; I10 Essential (primary) hypertension; Z86.718 Personal history of other venous thrombosis and embolism; Z79.01 Long term (current) use of anticoagulants; Z79.899 Other long term (current) drug therapy
CPT/HCPCS: 36415; 70450; 70496; 70498; 70551; 71045; 80048; 80053; 81001; 82947; 84484; 85025; 85027; 85610; 85730; 93005; 96372; 99222; 99285; J1643; Q9967

== ENCOUNTER → 2023-01-14 16:18 | Outpatient (BNV) | payer MEDICARE, OTHER, SELFPAY | PROVIDERS: Admitting Provider Nurse Practitioner Acute Care; Emergency Provider Emergency Medicine; PCP Nurse Practitioner Adult Health; Visit Provider Nurse Practitioner Acute Care | DX: G45.9 Transient cerebral ischemic attack, unspecified (principal) | CPT/HCPCS: 99222; 99232; 99239 ==